=== PATIENT | male | born 1980 | race Caucasian/White ===

== ENCOUNTER 2016-11-04 14:29 | Emergency (ER) | payer OTHER ==
[~2016-11-04] VITALS: Ht 167.6 cm; Wt 70.2 kg
[2016-11-04] MEDS ORDERED: DESOWEN60 GM TP (15:58)
[2016-11-04] MEDS ORDERED: CLEOCIN300 MG PO (15:58)
[2016-11-04 16:08] VITALS: BP 116/83
== END 2016-11-04 16:09 | disposition home or self-care (01) ==
LOC: EME 14:29
DX: L30.9 Dermatitis, unspecified (principal); L03.113 Cellulitis of right upper limb
CPT/HCPCS: 99281; 99284